=== PATIENT | male | born 1975 | race Caucasian/White ===

== ENCOUNTER 2025-02-17 10:54 | Emergency (ER) | payer OTHER, SELFPAY ==
[2025-02-17 11:17] VITALS: BP 130/78
[2025-02-17 12:00] VITALS: BP 135/82
[2025-02-17 12:01] VITALS: BMI 41.3
[2025-02-17 13:06] VITALS: BP 127/77
--- NOTE | 2025-02-17 15:48 | ED.GENMED ---
History of Present Illness
General
Chief Complaint: Skin Problem
Source: patient
Exam Limitations: none
Time Seen by Provider: 02/17/25 12:06
History of Present Illness
History of Present Illness:
49 year old male presents with painful swelling to the posterior scrotum he has had since the last 3 to 4 days. He denies fevers. He has had similar things like this in the past and resulted in having an abscess. He denies fevers or chills. No
perirectal pain. No vomiting. No other complaints at this time.
Phy Exam
Physical Exam
Physical Exam:
General: Well-appearing male no acute respiratory distress
HEENT: Normocephalic atraumatic
exam: Circumcised male. There is area of fluctuance over the posterior scrotum overlying the midline. Just as it joins into the perineal skin. This is tender without drainage
Course
Orders/Labs/Results
Orders:
Orders
02/17/25 12:18
US Scrotum Urgent
Comment:
Reason For Exam: swelling, possible abscess
02/17/25 14:32
Lidocaine/Epinephrine/Tetracai [Let Topical Anesthetic Gel] 3 ml .ROUTE .[facility]
Vital Signs
Initial and Last Documented VS:
Initial Vital Signs
Temp Pulse Resp BP Pulse Ox
98.0 F 79 16 130/78 98
02/17/25 11:17 02/17/25 11:17 02/17/25 11:17 02/17/25 11:17 02/17/25 11:17
Last Documented Vital Signs
Temp Pulse Resp BP Pulse Ox
98.0 F 76 15 127/77 98
02/17/25 11:17 02/17/25 13:06 02/17/25 13:06 02/17/25 13:06 02/17/25 11:17
MDM/Problems Addressed
Differential Diagnosis Includes:
Painful swelling posterior scrotum. Consider abscess versus mass. No signs of Vasu's gangrene or surrounding cellulitis history of similar in the past
Ultrasound ordered which demonstrates 3 x 2 x 1 area of fluctuance to suggest an abscess. Discussed with urology. I drained the abscess using 11 blade scalpel after the skin was and anesthetized with 1% plain lidocaine. A large amount of purulent
material was expressed from the area. Loculations were broken up and this was irrigated. Gauze was applied. Will start on Bactrim and have him follow-up with urology
*Critical Care Note
Total Time (30-74mins, 75-104mins- exclusive of procedures): Not Applicable
ED Attending Note
-
Portions of this chart may have been created with voice recognition software.� Occasional wrong word or��sound alike� substitutions may have occurred due to the inherent limitations of voice recognition software.
Discharge Plan
Departure
Patient Disposition: Home (Routine Discharge)
Date of Disposition: 02/17/25
Time of Disposition: 15:53
Patient with high blood pressure during this ER visit?: No
Discharge Problem:
Abscess
Instructions: Skin Abscess
Prescriptions:
New
sulfamethoxazole-trimethoprim [Bactrim DS] 800-160 mg tablet
1 tab PO BID Qty: 14 0RF
sulfamethoxazole-trimethoprim [Bactrim DS] 800-160 mg tablet
1 tab PO BID Qty: 14 0RF
Referrals:
Isreal Chadwick MD [Active] -
Joi Talbot CRNP [Family Provider] -
Activity Restrictions/Additional Instructions:
Use antibiotics as directed. Apply warm compresses to the area. Follow-up with urology. Return if worse if you develop increasing swelling pain fever
Interventions
Interventions:
*Risk Screen - Suicide Last Done: 02/17/25 11:17
*General Assessment Last Done: 02/17/25 12:01
*Neglect/Abuse Screening Last Done: 02/17/25 11:17
*ED- Fall Risk Assessment Last Done: 02/17/25 12:01
*ED COVID-19 Vaccine History Last Done: 02/17/25 12:01
ED-Skin Assessment Last Done: 02/17/25 12:02
Discharge Date and Time
Print Language: MACEDONIAN
== END 2025-02-17 16:26 | disposition home or self-care (01) ==
LOC: EMR 10:54
PROVIDERS: EMERGENCY PHYSICIAN Student in an Organized Health Care Education/Training Program; FAMILY PHYSICIAN Nurse Practitioner Adult Health
DX: N49.2 Inflammatory disorders of scrotum (principal)
CPT/HCPCS: 55100; 99284; 76870; 93976

== ENCOUNTER 2025-06-03 16:06 | Emergency (ER) | payer OTHER, SELFPAY ==
[2025-06-03 16:09] VITALS: BP 158/99
[2025-06-03 16:41] LABS: Hematocrit 42.1 % (39.0-52.0); Hemoglobin 14.4 g/dL (13.0-18.0); Mean Corp Hgb Conc. 34.2 g/dL (33.0-37.0); Mean Corpuscular Volume 90.7 fL (80.0-94.0); Platelet Count 206 10^3/uL (130-400); Red Cell Dist. Width 14.4 % (11.5-14.5)
[2025-06-03 16:55] LABS: Nucleated Red Blood Cells % 0 % (-)
[2025-06-03 16:57] LABS: ALT (SGPT) 24 U/L (0-50); AST (SGOT) 19 U/L (17-59); Albumin 4.6 g/dl (3.5-5.0); Alkaline Phosphatase 60 U/L (38-126); Blood Urea Nitrogen 10 mg/dl (9-20); Calcium 9.6 mg/dl (8.4-10.2); Carbon Dioxide 25 mmol/L (22-30); Chloride 105 mmol/L (98-107); Glucose 100 mg/dl (70-99); Magnesium 1.7 mg/dl (1.6-2.3); Potassium 4.1 mmol/L (3.5-5.1); Sodium 139 mmol/L (135-145); Total Protein 6.9 g/dl (6.3-8.2); eGFR > 60.00
[2025-06-03 17:02] LABS: Troponin I < 0.012 ng/ml
--- NOTE | 2025-06-03 18:17 | ED.GENMED ---
History of Present Illness
General
Chief Complaint: Cardiac Symptoms
Time Seen by Provider: 06/03/25 18:16
History of Present Illness
History of Present Illness:
TIME OF INITIAL EVALUATION
- 6:20 PM
REVIEW OF OLD RECORDS
- The patient was seen here earlier this year diagnosed with an abscess. I looked for old records but there are no cardiac old records here.
Note:
CHIEF COMPLAINT(S)
Episodes of increased heart rate with associated chest discomfort, anxiety, and thirst.
HISTORY OF PRESENT ILLNESS
The patient is a 49-year-old male with a history of atrial fibrillation in 2020 and subsequent myocardial infarction. He is under the care of his tufting creeler, at [place]. At that time, the patient initially experienced atrial fibrillation and was
placed on metoprolol. He later suffered a myocardial infarction during this medication course and underwent stent placement at [facility]. The patient sees a tufting creeler at [place] and he is taking 81 mg of aspirin daily. He reported three
separate episodes today where his heart rate increased to 123, 119, and 122 beats per minute, as recorded by his watch. During these episodes, he described a sensation of his chest 'collapsing in on itself,' which he previously experienced with
atrial fibrillation and during his heart attack. Other associated symptoms included thirst and anxiety. The increase in heart rate occurred without significant physical exertion, except for one episode where he was attempting to run. Around 2:45 PM,
he took 100 mg of metoprolol, and within an hour he felt markedly better. He also noted a sensation similar to dehydration during these episodes. He currently has no symptoms.
CHRONIC MEDICAL CONDITIONS SIGNIFICANTLY AFFECTING CARE
Atrial fibrillation; previous myocardial infarction (2020); stent placement; on chronic low-dose aspirin therapy.
SOCIAL DETERMINANTS AFFECTING HEALTH
The patient disclosed significant stress and anxiety which could contribute to his symptoms. There is a consideration of the possibility of an anxiety attack following his stressful circumstances. His father recently .
MEDICATIONS
Metoprolol 100 mg twice daily, Aspirin 81 mg daily.
REVIEW OF SYSTEMS
- Cardiovascular: Episodes of increased heart rate and chest discomfort.
- Psychological: Anxiety experienced during episodes.
- Metabolic: Reported increased thirst during episodes.
PHYSICAL EXAM
General: Alert, no acute distress. Elevated BMI noted
Skin: Warm, dry.
Head: Normocephalic, atraumatic.
Neck: Supple, trachea midline.
Eyes, Ears, Nose, and Throat: Oral mucosa moist.
Cardiovascular: Normal sinus rhythm on monitor, normal peripheral perfusion, no edema.
Respiratory: Respirations are non-labored.
Gastrointestinal: Abdomen nondistended.
Back: Normal range of motion, normal alignment.
Musculoskeletal: Normal range of motion, normal strength.
Neurological: Alert and oriented to person, place, time, and situation, no focal neurological deficit observed.
Psychiatric: Cooperative, appropriate mood & affect.
PROBLEM LIST
- Acute: Episodes of elevated heart rate, anxiety, and thirst.
- Chronic: Atrial fibrillation, post-myocardial infarction, stent placement.
PLAN
- Repeat cardiac blood tests to assess any changes.
- Follow-up with tufting creeler at [facility] assuming lab results remain negative.
- Consider anxiety and stress management strategies as contributing factors to symptoms.
DIFFERENTIAL DIAGNOSIS
The Differential Diagnosis includes, in no particular order and is not limited to:
1. Atrial Fibrillation.
2. Paroxysmal Supraventricular Tachycardia.
3. Acute Myocardial Infarction.
4. Generalized Anxiety Disorder.
5. Dehydration.
6. Panic Attack.
7. Drug effect of medications such as metoprolol.
8. Cardiac Arrhythmia.
9. Heart Failure.
10. Electrolyte Imbalance.
RADIOLOGY
- The patient is currently symptom-free�will hold off on x-ray
EKG
- Sinus 82, normal axis, nonspecific ST abnormality, no old to compare
LABS
- CBC unremarkable, chemistries and troponin unremarkable, TSH normal
UPDATE
-SUMMARY OF ENCOUNTER
The patient, a 49-year-old male with a history of atrial fibrillation and myocardial infarction, presented to the emergency department with episodes of increased heart rate, chest discomfort, anxiety, and thirst. He reported that his heart rate
reached 123, 119, and 122 beats per minute during these episodes, which were recorded by his watch. Cardiac evaluation, including blood work and an EKG, showed normal results, ruling out an acute myocardial infarction and atrial fibrillation. The
presentation was suggestive of anxiety or stress-related episodes, possibly panic attacks. The patient was counseled about anxiety management and cardiac monitoring devices that can be self-purchased if needed.
DISPOSITION
Discharge.
ASSESSMENT
The patients symptoms were likely due to anxiety or stress, with no current evidence of a cardiac event or atrial fibrillation.
PLAN
The patient is to follow up with his tufting creeler at [facility]. Lifestyle changes and stress management were discussed. A local cardiologists name was provided for potential follow-up if necessary.
PATIENT EDUCATION AND COUNSELING
The patient was advised on lifestyle modifications and was informed that no major cardiac issues were detected in the emergency department. The possibility and impact of anxiety and stress on his symptoms were explained.
FOLLOW-UP INSTRUCTIONS
The patient was advised to follow up with his current tufting creeler at [facility] and consider the name of a local tufting creeler if preferred. No urgent cardiology appointment is necessary unless symptoms persist.
MEDICATION RECONCILIATION
No new prescriptions were given. The patient continues on his current medications: metoprolol 100 mg twice daily and aspirin 81 mg daily.
MEDICAL DECISION MAKING
Chronic conditions affecting care: Atrial fibrillation, post-myocardial infarction, stent placement.
-Complexity of Data Reviewed:
1. Number and Complexity of Problems Addressed:
- Chronic conditions affecting care: Atrial fibrillation, post-myocardial infarction, stent placement.
- Differential Diagnosis: Atrial Fibrillation, Paroxysmal Supraventricular Tachycardia, Acute Myocardial Infarction, Generalized Anxiety Disorder, Dehydration, Panic Attack, Drug effect of medications such as metoprolol, Cardiac Arrhythmia, Heart
Failure, Electrolyte Imbalance.
2. Data:
- Category 1
- My independent review of cardiac blood tests indicates they were normal, not showing acute myocardial infarction.
- My independent EKG interpretation is within normal sinus rhythm, no atrial fibrillation detected.
3. Risk:
- Prescription medication management continues with metoprolol and aspirin.
- Consideration of Admission/Observation: Escalation of care including admission/observation was considered given the complexity and risk of the patients presenting complaint, exam findings, and/or their underlying comorbidities. However, ultimately
I feel the patient is safe for outpatient management with close follow-up. Reasoning: Work-up reassuring, does not reveal any acute life/organ-threatening processes, patients symptoms well-controlled upon reevaluation, reexamination is reassuring,
vitals are stable, patient agreeable with discharge, reliable for follow-up.
- Care significantly affected by Social Determinants of Health: Patient disclosed significant stress and anxiety, contributing to symptoms.
DIAGNOSIS
- Palpitations
- Atrial Fibrillation (historic, not current episode noted) - ICD-10 I48.91
Phy Exam
Physical Exam
Physical Exam:
See HPI
Course
Orders/Labs/Results
Orders:
Orders
06/03/25 16:08
ECG [Electrocardiogram (*1)] Urgent
Reason for Study: Palpitations
EKG- Treatment ONCE
06/03/25 16:28
Complete Blood Count/With Diff Urgent
Comprehensive Metabolic Panel Urgent
Magnesium Urgent
TSH Reflex To Free T4 Urgent
Troponin I Urgent
06/03/25 19:03
Troponin I Urgent
Abnormal Lab Results
06/03/25
16:28
RBC 4.64 L 10^6/uL
(4.70-6.10)
Immature Gran % 0.7 H %
(0-0.5)
Glucose 100 H mg/dl
(70-99)
06/03/25 16:28
06/03/25 16:28
Vital Signs
Initial and Last Documented VS:
Initial Vital Signs
Temp Pulse Resp BP Pulse Ox
36.7 C 81 20 158/99 99
06/03/25 16:09 06/03/25 16:09 06/03/25 16:09 06/03/25 16:09 06/03/25 16:09
Last Documented Vital Signs
Temp Pulse Resp BP Pulse Ox
36.7 C 75 16 108/70 99
06/03/25 16:09 06/03/25 19:00 06/03/25 19:00 06/03/25 19:00 06/03/25 18:18
*Pulse Oximetry
SaO2: 99
Oxygen Mode of Delivery: Room air
Patient hypoxic: no
*Critical Care Note
Total Time (30-74mins, 75-104mins- exclusive of procedures): Not Applicable
ED Attending Note
-
Portions of this chart may have been created with voice recognition software.� Occasional wrong word or��sound alike� substitutions may have occurred due to the inherent limitations of voice recognition software.
Discharge Plan
Departure
Patient Disposition: Home (Routine Discharge)
Date of Disposition: 06/03/25
Time of Disposition: 19:43
Patient with high blood pressure during this ER visit?: Yes
Discharge Problem:
Palpitations
Instructions: Palpitations
Prescriptions:
No Action
sulfamethoxazole-trimethoprim [Bactrim DS] 800-160 mg tablet
1 tab PO BID Qty: 14 0RF
sulfamethoxazole-trimethoprim [Bactrim DS] 800-160 mg tablet
1 tab PO BID Qty: 14 0RF
Referrals:
Joi Talbot CRNP [Family Provider, General]
Parker Grijalva DO [Active, Cardiology]
Activity Restrictions/Additional Instructions:
Follow-up with your tufting creeler. If you would like, I have given you the contact information of a local tufting creeler that you could follow-up with instead. Cardiac blood work shows no sign of heart attack. EKG shows no sign of A-fib. Basic
blood work as well as thyroid screening test are all normal. Return here if worse or other concerns.
Interventions
Interventions:
*Risk Screen - Suicide Last Done: 06/03/25 19:05
*General Assessment Last Done: 06/03/25 16:09
*Neglect/Abuse Screening Last Done: 06/03/25 19:05
*ED- Fall Risk Assessment Last Done: 06/03/25 19:05
*ED COVID-19 Vaccine History Last Done: 06/03/25 19:05
ED- Pulmonary Assessment Last Done: 06/03/25 19:05
ED- Cardiac Assessment Last Done: 06/03/25 19:05
Discharge Date and Time
Print Language: GABONESE
[2025-06-03 19:00] VITALS: BP 108/70
[2025-06-03 19:34] LABS: Troponin I < 0.012 ng/ml
== END 2025-06-03 19:49 | disposition home or self-care (01) ==
LOC: EMR 16:06
PROVIDERS: EMERGENCY PHYSICIAN Emergency Medicine; FAMILY PHYSICIAN Nurse Practitioner Adult Health
DX: R00.2 Palpitations (principal); R03.0 Elevated blood-pressure reading, without diagnosis of hypertension; I48.91 Unspecified atrial fibrillation; Z79.899 Other long term (current) drug therapy; F41.9 Anxiety disorder, unspecified; Z79.82 Long term (current) use of aspirin
CPT/HCPCS: 99284; 80053; 83735; 84443; 84484; 85025; 93005